=== PATIENT | female | born 1975 | race Caucasian/White ===

== ENCOUNTER 2018-11-14 16:26 | Emergency (ER) | payer SELFPAY ==
[2018-11-14 16:27] VITALS: BMI 21.3
[2018-11-14] MEDS ORDERED: PEPCID AC20 MG PO (18:19)
[2018-11-14] MEDS ORDERED: STERAPRED DS 1210 MG PO (18:29)
[2018-11-14] MEDS ORDERED: EPIPEN 2-P0.3 MG/0.3 IM (18:33)
[2018-11-14 19:18] VITALS: BP 101/67
== END 2018-11-14 19:18 | disposition home or self-care (01) ==
LOC: D.ER 16:26
DX: T78.40XA Allergy, unspecified, initial encounter (principal); X58.XXXA Exposure to other specified factors, initial encounter; L50.9 Urticaria, unspecified